=== PATIENT | male | born 1995 | race Caucasian/White ===

== ENCOUNTER 2019-07-18 13:03 | Emergency (ER) | payer OTHER ==
[~2019-07-18] VITALS: Ht 182.9 cm; Wt 104.3 kg
--- OUTSIDE RECORDS SUMMARY | 2019-07-18 15:18 | XMS ---
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 No recent Security Events currently on file CRITERIA MET - [facility] CARE PROVIDERS MAURY CLARK Physician Quenching Machine Operator Current PHONE: Unknown LEATHA BECKMAN [employer] Franki FARIAS PHONE: [phone] [facility] Primary Care Current BEHAVIORAL HEALTH PHONE: Unknown [facility] Primary Care Franki BURGESS PHONE: Unknown NON ESTABLISHED Primary Care Current PHONE: [phone] Guidelines Source: [employer] [place] Guidelines Date: 05/18/2019 Care Coordination: Mental health services provided by [employer].\T\nbsp; Please contact [employer] with mental health concerns.\T\nbsp; [facility]: [phone]\T\ nbsp; May: [phone]. E.D. VISIT COUNT (12 MO.) 1 [facility] [address] [facility] Poll[facility] TOTAL 4 NOTE: Visits indicate total known visits. ED/UCC VISIT TRACKING (12 MO.) 07/18/2019 13:05 ED[facility] TYPE: Emergency COMPLAINT: - SORE THROAT, POSSIBLE FOREIGN BODY 05/12/2019 21:18 [facility] [place] TYPE: Emergency DIAGNOSES: - HEAD INJURY - Contusion of scalp, initial encounter 09/26/2018 00:00 ED[facility] V[place] TYPE: Emergency COMPLAINT: - FEELS DRUGGED 07/18/2018 10:50 [facility] [place] TYPE: Emergency DIAGNOSES: - Muscle Pain - Other muscle spasm - muscle spasms INPATIENT VISIT TRACKING (12 MO.) No inpatient visits to display in this time frame [id number]
[2019-07-18] MEDS ORDERED: CEPHALEXIN500 MG PO (19:52)
== END 2019-07-18 15:04 | disposition home or self-care (01) ==
LOC: ED 13:03
DX: S20.212A Contusion of left front wall of thorax, initial encounter (principal); S19.9XXA Unspecified injury of neck, initial encounter; F15.10 Other stimulant abuse, uncomplicated; W22.8XXA Striking against or struck by other objects, initial encounter
CPT/HCPCS: 71046; 99284-25

== ENCOUNTER 2019-07-18 17:02 | Emergency (ER) | payer OTHER ==
[~2019-07-18] VITALS: Ht 182.9 cm; Wt 106.1 kg
--- OUTSIDE RECORDS SUMMARY | 2019-07-18 17:04 | XMS ---
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 No recent Security Events currently on file CRITERIA MET - [facility] - 2 Visits in 30 Days CARE PROVIDERS MAURY CLARK Physician First Beater Current PHONE: Unknown LEATHA BECKMAN Child Protective Services Social Worker Franki [facility] PHONE: [phone] EVANGELISTA MATHIAS Primary Care [facility] PHONE: Unknown MAY LUCERO Primary Care Franki BURGESS PHONE: Unknown NON ESTABLISHED Primary Care Current PHONE: [phone] Guidelines Source: [employer] [place] Guidelines Date: 05/18/2019 Care Coordination: Mental health services provided by [employer].\T\nbsp; Please contact [employer] with mental health concerns.\T\nbsp; [facility]: [phone]\T\ nbsp; May: [phone]. E.D. VISIT COUNT (12 MO.) 1 [facility] [address] [place] 3 EDWARD Pollock TOTAL 5 NOTE: Visits indicate total known visits. ED/UCC VISIT TRACKING (12 MO.) 07/18/2019 17:02 [facility] [place]rez [place] TYPE: Emergency COMPLAINT: - SUICIDAL 07/18/2019 13:05 [facility] [place]rez [place] TYPE: Emergency COMPLAINT: - SORE THROAT, POSSIBLE FOREIGN BODY 05/12/2019 21:18 [facility] [place] TYPE: Emergency DIAGNOSES: - HEAD INJURY - Contusion of scalp, initial encounter 09/26/2018 00:00 [facility] [place] TYPE: Emergency COMPLAINT: - FEELS DRUGGED 07/18/2018 10:50 [facility] [place] TYPE: Emergency DIAGNOSES: - Muscle Pain - Other muscle spasm - muscle spasms INPATIENT VISIT TRACKING (12 MO.) No inpatient visits to display in this time frame [id number]
[2019-07-18] MEDS ORDERED: CEPHALEXIN500 MG PO (19:52)
== END 2019-07-18 20:03 | disposition home or self-care (01) ==
LOC: ED 17:02
DX: N39.0 Urinary tract infection, site not specified (principal); Z87.891 Personal history of nicotine dependence; Z88.5 Allergy status to narcotic agent; Z88.6 Allergy status to analgesic agent
CPT/HCPCS: 80053; 81001; 84443; 85025; 99284

== ENCOUNTER 2019-08-19 05:09 | Emergency (ER) | payer OTHER ==
[~2019-08-19] VITALS: Ht 190.5 cm; Wt 97.1 kg
[~2019-08-19 05:09] MED LIST: CEPHALEXIN500 MG PO; OXYCODONE HCL5 MG PO
--- OUTSIDE RECORDS SUMMARY | 2019-08-19 05:10 | XMS ---
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 [place] has no Care Guidelines for this patient. Saurabh VISIT COUNT (12 MO.) [address] [facility] [place] TOTAL 2 NOTE: Visits indicate total known visits. ED/C VISIT TRACKING (12 MO.) 08/19/2019 05:[address] [facility] [place] [place] TYPE: Emergency COMPLAINT: - DRUG USE 08/18/2019 19:32 [facility] Torrez [place] TYPE: Emergency COMPLAINT: - FALL/HEAD INJURY INPATIENT VISIT TRACKING (12 MO.) No inpatient visits to display in this time frame [id number]
== END 2019-08-19 07:22 | disposition home or self-care (01) ==
LOC: ED 05:09
DX: F15.90 Other stimulant use, unspecified, uncomplicated (principal); F11.90 Opioid use, unspecified, uncomplicated; F17.200 Nicotine dependence, unspecified, uncomplicated; Z88.5 Allergy status to narcotic agent; Z88.8 Allergy status to other drugs, medicaments and biological substances
CPT/HCPCS: 80053; 81001; 85025; 99282; J7030

== ENCOUNTER 2019-09-27 01:12 | Emergency (ER) | payer OTHER ==
[~2019-09-27] VITALS: Ht 190.5 cm; Wt 97.1 kg
--- OUTSIDE RECORDS SUMMARY | 2019-09-27 01:14 | XMS ---
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 - Has Care Guidelines - [facility] - 2 Visits in 30 Days CARE PROVIDERS MAURY CLARK Physician Supervisor [employer] Services Current PHONE: [phone] LEATHA BECKMAN Payroll Tax Analyst Franki [facility] PHONE: [phone] EVANGELISTA GARDINER Primary Care [facility] PHONE: Unknown MAY LUCERO Primary Care Franki BURGESS PHONE: Unknown NON ESTABLISHED Primary Care Current PHONE: [phone] Guidelines Source: [employer] [place]nie Guidelines Date: 05/18/2019 Care Coordination: Mental health services provided by [employer].\T\nbsp; Please contact [employer] with mental health concerns.\T\nbsp; [facility]: [phone]\T\ nbsp; [place]: [phone]. E.D. VISIT COUNT (12 MO.) [address] [place] TOTAL 10 NOTE: Visits indicate total known visits. 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 - Suicidal ideations - DETOX - Alcohol dependence, uncomplicated - Flu due to unidentified influenza virus w oth resp manifest 08/31/2019 13:50 [facility] [place] TYPE: Emergency DIAGNOSES: - Unsp psychosis not due to a substance or known physiol cond - ANXIETY - Adverse effect of cannabis (derivatives), initial encounter 08/26/2019 23:54 [facility] [place] TYPE: Emergency DIAGNOSES: - Contusion of left knee, initial encounter - FALL - Contusion of right front wall of thorax, initial encounter 08/19/2019 05:09 [facility] [place] TYPE: Emergency COMPLAINT: - DRUG USE DIAGNOSES: - Allergy status to narcotic agent status - Opioid use, unspecified, uncomplicated - Nicotine dependence, unspecified, uncomplicated - Other stimulant use, unspecified, uncomplicated - Allergy status to oth drug/meds/biol subst status 08/18/2019 19:32 [facility] [place] TYPE: Emergency COMPLAINT: - FALL/HEAD INJURY DIAGNOSES: - Allergy status to oth drug/meds/biol subst status - Striking against or struck by other objects, init encntr - Nicotine dependence, unspecified, uncomplicated - Unspecified injury of head, initial encounter - Allergy status to narcotic agent status 07/23/2019 12:07 [facility] [place] TYPE: Emergency COMPLAINT: - RIGHT FLANK PAIN DIAGNOSES: - Dorsalgia, unspecified - Allergy status to narcotic agent status - Unspecified abdominal pain - Personal history of nicotine dependence - Allergy status to oth drug/meds/biol subst status 07/18/2019 17:02 [facility] [place] TYPE: Emergency COMPLAINT: - SUICIDAL DIAGNOSES: - Allergy status to narcotic agent status - Urinary tract infection, site not specified - Allergy status to analgesic agent status - Personal history of nicotine dependence - Encounter for other general examination 07/18/2019 13:05 [facility] [place] TYPE: Emergency COMPLAINT: - SORE THROAT, POSSIBLE FOREIGN BODY DIAGNOSES: - Unspecified injury of neck, initial encounter - Contusion of left front wall of thorax, initial encounter - Striking against or struck by other objects, init encntr - Chest pain, unspecified - Other stimulant abuse, uncomplicated 05/12/2019 21:18 [facility] [place] TYPE: Emergency DIAGNOSES: - HEAD INJURY - Contusion of scalp, initial encounter INPATIENT VISIT TRACKING (12 MO.) No inpatient visits to display in this time frame [id number]
--- NOTE | 2019-09-27 11:15 | EKG ---
[facility] [address] [facility] [place], [place] [address] Signed Normal sinus rhythm Normal ECG No previous ECGs available Confirmed by SARIAH LOVELL DO ([id number]) on 09/27/2019 11:15:27 AM Electronically Signed By: SARAIH LOVELL DO 09/27/19 1115 PATIENT NAME: MARIA M CÁRDENAS Electrocardiogram DATE OF : [birth year] PHYSICIAN: SARIAH LOVELL DO REPORT #: [id number] REPORT IS CONFIDENTIAL AND NOT TO BE RELEASED WITHOUT AUTHORIZATION
== END 2019-09-27 02:41 | disposition home or self-care (01) ==
LOC: ED 01:12
DX: F15.10 Other stimulant abuse, uncomplicated (principal); Z87.891 Personal history of nicotine dependence
CPT/HCPCS: 51701; 71046; 80053; 81001; 83735; 84484; 85025; 93005; 93010; 99283-25; G0480; J2405

== ENCOUNTER 2019-10-06 17:30 | Emergency (ER) | payer OTHER ==
[~2019-10-06] VITALS: Ht 190.5 cm; Wt 93.0 kg
== END 2019-10-06 18:44 | disposition home or self-care (01) ==
LOC: ED 17:30
DX: F19.10 Other psychoactive substance abuse, uncomplicated (principal); F17.200 Nicotine dependence, unspecified, uncomplicated
CPT/HCPCS: 99284